=== PATIENT | female | born 1965 | race Hispanic/Latino ===

== ENCOUNTER 2017-02-11 13:43 | Emergency (ER) | payer MEDICARE, OTHER ==
[2017-02-11 14:03] VITALS: BP 126/78; PULSE 110; RESP 18; TEMP 98; O2SAT 98
[2017-02-11 14:08] VITALS: BMI 26.4
--- NOTE | 2017-02-11 14:10 | C.PDOC ---
History Of Present Illness Patient is a 51 y/o F presenting with L ear pain with clear discharge x 1 week. She reports that she cleans her ears daily with qtip. Time Seen by Provider: 02/11/17 13:56 Chief Complaint (Nursing): ENT Problem Past Medical History Vital Signs: Last Vital Signs Temp 98.0 F 02/11/17 13:55 Pulse 110 H 02/11/17 13:55 Resp 18 02/11/17 13:55 BP 126/78 02/11/17 13:55 Pulse Ox 98 02/11/17 14:10 - Medical History PMH: Anxiety, Depression Denies: Diabetes, Hepatitis, HIV, HTN, Seizures, Sexually Transmitted Disease Family History: States: Unknown Family Hx - Social History Hx Tobacco Use: Yes Hx Alcohol Use: Yes Hx Substance Use: No - Immunization History Hx Tetanus Toxoid Vaccination: No Hx Influenza Vaccination: No Hx Pneumococcal Vaccination: No Review Of Systems Constitutional: Negative for: Fever, Chills ENT: Positive for: Ear Pain, Ear Discharge. Negative for: Nose Discharge, Mouth Swelling, Throat Pain, Throat Swelling Cardiovascular: Negative for: Chest Pain Respiratory: Negative for: Cough, Shortness of Breath, SOB with Excertion, Wheezing Gastrointestinal: Negative for: Nausea, Vomiting, Abdominal Pain, Diarrhea, Constipation Skin: Negative for: Rash Neurological: Negative for: Weakness, Numbness Physical Exam - Physical Exam Appears: Well, Non-toxic, No Acute Distress Skin: Normal Color, Warm, Dry Head: Atraumatic, Normacephalic Eye(s): bilateral: Normal Inspection, PERRL, EOMI Ear(s): Right: Normal, Bilateral: Other (foreign body to L ear) Nose: Normal Oral Mucosa: Moist Tongue: Normal Appearing Lips: Normal Appearing Gingiva: Normal Appearing Throat: Normal, No Erythema, No Exudate Neck: Supple ED Course And Treatment O2 Sat by Pulse Oximetry: 98 Medical Decision Making Medical Decision Making: Foreign body in ear was removed with alligator forceps in 1 attempt. L TM is perforated. Perforation was likely caused by cleaning with qtip after foreign body (stud earring) became lodged in ear. Will dc with antibiotic drops. Disposition - Disposition Referrals: Carter Richmond MD [Staff Provider] - Disposition: HOME/ ROUTINE Disposition Time: 14:06 Condition: GOOD Additional Instructions: Use drops in ear. Avoid getting water in L ear. Follow-up with ENT. Motrin for pain. Return to ED with any worsening symptoms Prescriptions: Ofloxacin Otic 0.3% [Floxin 0.3% Otic Soln] 5 drop BID #1 bottle Instructions: Ruptured Eardrum (ED) Forms: [employer] ([place]) - Clinical Impression Clinical Impression: Ruptured tympanic membrane, Foreign body in ear
== END 2017-02-11 14:22 | disposition home or self-care (01) ==
LOC: C.ER 13:43
DX: H72.92 Unspecified perforation of tympanic membrane, left ear (principal); T16.2XXA Foreign body in left ear, initial encounter; X58.XXXA Exposure to other specified factors, initial encounter